=== PATIENT | female | born 1995 | race Caucasian/White ===

== ENCOUNTER 2018-01-08 17:08 | Emergency (ER) | payer MEDICAID ==
[2018-01-08] MEDS: IBUPROFEN 600 MG TAB PO (19:13)
== END 2018-01-08 21:55 | disposition home or self-care (01) ==
LOC: FTE 17:08
DX: S62.354A Nondisplaced fracture of shaft of fourth metacarpal bone, right hand, initial encounter for closed fracture (principal); W22.8XXA Striking against or struck by other objects, initial encounter; Y92.34 Swimming pool (public) as the place of occurrence of the external cause
CPT/HCPCS: 29125; 73130-RT; 99283-25